=== PATIENT | female | born 1985 | race Caucasian/White ===

== ENCOUNTER 2016-12-04 22:13 | Emergency (ER) | payer OTHER | END 2016-12-04 23:41 | disposition home or self-care (01) | LOC: ER1 22:13 | DX: N93.9 Abnormal uterine and vaginal bleeding, unspecified (principal); F17.200 Nicotine dependence, unspecified, uncomplicated; Z88.6 Allergy status to analgesic agent; Z88.2 Allergy status to sulfonamides; Z88.1 Allergy status to other antibiotic agents | CPT/HCPCS: 81001; 84703; 99284 ==

== ENCOUNTER 2020-07-18 04:32 | Emergency (ER) | payer OTHER ==
[~2020-07-18 04:32] MED LIST: COLACE 100MG C100 MG PO; GABAPENTIN400 MG PO; IBUPROFEN600 MG PO; PRENATAL VITAM1 EAC8 PO; SUBUTEX 8 MG TAB8 MG PO
[2020-07-18 05:04] LABS: HEMOGLOBIN 16.3 gm/dl (12.3-15.3); RED BLOOD COUNT 5.31 M/UL (4.00-5.10)
[2020-07-18 05:42] LABS: BUN/CREATININE RATIO 15 (0-10)
== END 2020-07-18 12:40 | disposition home or self-care (01) ==
LOC: ER1 04:32
PROVIDERS: Emergency Medicine
DX: O20.9 Hemorrhage in early pregnancy, unspecified (principal); O99.891 Other specified diseases and conditions complicating pregnancy; R10.31 Right lower quadrant pain; R10.32 Left lower quadrant pain; O99.111 Other diseases of the blood and blood-forming organs and certain disorders involving the immune mechanism complicating pregnancy, first trimester; D72.829 Elevated white blood cell count, unspecified; O24.911 Unspecified diabetes mellitus in pregnancy, first trimester; O99.331 Smoking (tobacco) complicating pregnancy, first trimester; F17.200 Nicotine dependence, unspecified, uncomplicated; Z3A.09 9 weeks gestation of pregnancy; Z88.2 Allergy status to sulfonamides; Z88.1 Allergy status to other antibiotic agents
CPT/HCPCS: 36415; 76817; 80053; 81001; 82962; 83690; 84702; 85025; 86900; 86901; 87086; 93005; 96374; 96375; 99284; J2270; J2405

== ENCOUNTER 2022-01-26 10:52 | Inpatient (IN) | payer OTHER ==
[~2022-01-26] VITALS: Ht 162.6 cm; Wt 101.6 kg
[2022-01-26 11:40] LABS: HEMOGLOBIN 10.8 gm/dl (12.3-15.3); RED BLOOD COUNT 3.8 M/UL (4.00-5.10); WHITE BLOOD COUNT 9.3 K/UL (4.5-11.0)
[2022-01-27 06:49] LABS: HEMOGLOBIN 10.6 gm/dl (12.3-15.3)
[2022-01-28] MEDS ORDERED: IBUPROFEN600 MG PO (16:26)
[2022-01-28] MEDS ORDERED: DOCUSATE SODIU100 MG PO (16:26)
== END 2022-01-28 18:15 | disposition home or self-care (01) | DRG 806 ==
LOC: OB 10:52
PROVIDERS: ADMIT Obstetrics & Gynecology
PROC: 10E0XZZ Delivery of Products of Conception, External Approach (ICD-10-PCS; principal; 2022-01-26)
PROC: 10907ZC Drainage of Amniotic Fluid, Therapeutic from Products of Conception, Via Natural or Artificial Opening (ICD-10-PCS; 2022-01-26)
PROC: 0UH97HZ Insertion of Contraceptive Device into Uterus, Via Natural or Artificial Opening (ICD-10-PCS; 2022-01-26)
PROC: 3E033VJ Introduction of Other Hormone into Peripheral Vein, Percutaneous Approach (ICD-10-PCS; 2022-01-26)
PROC: 4A1H7CZ Monitoring of Products of Conception, Cardiac Rate, Via Natural or Artificial Opening (ICD-10-PCS; 2022-01-26)
PROC: 10H073Z Insertion of Monitoring Electrode into Products of Conception, Via Natural or Artificial Opening (ICD-10-PCS; 2022-01-26)
PROC: 3E0234Z Introduction of Serum, Toxoid and Vaccine into Muscle, Percutaneous Approach (ICD-10-PCS; 2022-01-26)
DX: O99.324 Drug use complicating childbirth (principal); F11.20 Opioid dependence, uncomplicated; Z37.0 Single live birth; O24.420 Gestational diabetes mellitus in childbirth, diet controlled; O99.344 Other mental disorders complicating childbirth; O99.334 Smoking (tobacco) complicating childbirth; F17.200 Nicotine dependence, unspecified, uncomplicated; O36.5930 Maternal care for other known or suspected poor fetal growth, third trimester, not applicable or unspecified; O99.284 Endocrine, nutritional and metabolic diseases complicating childbirth; E28.2 Polycystic ovarian syndrome; F41.9 Anxiety disorder, unspecified; O99.824 Streptococcus B carrier state complicating childbirth; F32.A Depression, unspecified; Z3A.38 38 weeks gestation of pregnancy; Z28.310 Unvaccinated for COVID-19; Z88.8 Allergy status to other drugs, medicaments and biological substances; Z90.49 Acquired absence of other specified parts of digestive tract; Z23 Encounter for immunization
CPT/HCPCS: 36415; 80307; 81001; 82800; 82962; 85014; 85018; 85025; 90715; J2590

== ENCOUNTER → 2022-02-01 | Outpatient (CLI) | payer OTHER ==
[~2022-02-01] MED LIST changes: +DOCUSATE SODIU100 MG PO
== END ==
LOC: KOH-I 13:00
DX: M79.604 Pain in right leg (principal); Z39.2 Encounter for routine postpartum follow-up
CPT/HCPCS: 93971